=== PATIENT | female | born 1980 | race Caucasian/White ===

== ENCOUNTER 2021-04-26 11:56 | Emergency (ER) | payer OTHER ==
[2021-04-26 13:23] LABS: BASOPHIL 0.4 % (0-2); EOSINOPHIL 3.1 % (0-5); HCT 39.9 % (37.0-47.0); HGB 13.6 g/dl (12.5-16.0); LYMPHOCYTE 13.2 % (15-48); MCH 31.3 pg (25.0-31.0); MCHC 34.1 g/dL (32.0-36.0); MCV 91.7 fL (78.0-100.0); MONOCYTE 5.7 % (0-12); NEUTROPHIL 77.1 % (41-80); NRBC 0; PLT 324 K/uL (150-400); RBC 4.35 M/uL (4.20-5.40); RDW 13.4 % (11.5-14.0); WBC 17.9 K/uL (4.0-10.5)
[2021-04-26 13:40] LABS: ALBUMIN 4.3 g/dL (3.4-5.0); BILIRUBIN - TOTAL 0.2 mg/dL (0.2-1.0); BUN/CREAT RATIO (CALC) 12.8 RATIO; CREATININE 0.78 mg/dL (0.51-0.95); GLOBULIN (CALCULATION) 3.5 g/dL; TOTAL PROTEIN 7.8 g/dL (6.4-8.2)
[2021-04-26 14:52] LABS: FT4 (FREE T4) 0.4 ng/dL (0.76-1.46)
[2021-04-26 15:23] LABS: BILIRUBIN NEGATIVE (NEGATIVE); BLOOD NEGATIVE Ery/uL (NEGATIVE); CLARITY CLEAR (CLEAR); COLOR YELLOW (YELLOW); GLUCOSE (U) NORMAL (NORMAL); LEUKOCYTES NEGATIVE Leu/uL (NEGATIVE); NITRITE NEGATIVE (NEGATIVE); PROTEIN NEGATIVE (NEGATIVE); UROBILINOGEN 0.2 mg/dL (0.2-1.0); pH 6.5 (5.0-9.0)
[2021-04-26 15:51] LABS: LACTIC ACID 1.5 mmol/L (0.4-1.9)
== END 2021-04-26 18:11 | disposition home or self-care (01) ==
LOC: FER 11:56
PROVIDERS: Emergency Medicine; Nurse Practitioner Family
DX: R53.1 Weakness (principal); R94.6 Abnormal results of thyroid function studies; I10 Essential (primary) hypertension; Z91.040 Latex allergy status
CPT/HCPCS: 36415; 70450; 80053; 81003; 83605; 84439; 84443; 84481; 84484; 85025; 93005